=== PATIENT | female | born 1975 | race African-American/Black ===

== ENCOUNTER 2020-11-23 23:57 | Emergency (ER) | payer OTHER ==
[~2020-11-23] VITALS: Ht 162.6 cm; Wt 80.7 kg
[2020-11-24] MEDS ORDERED: IBUPROFEN 600 MG TAB PO STA (01:55)
[2020-11-24] MEDS ORDERED: IBUPROFEN 400 MG TAB PO STA (01:58)
[2020-11-24] MEDS ORDERED: NAPROSYN500 MG PO (01:59)
[2020-11-24] MEDS ORDERED: CYCLOBENZAPRINE10 MG PO (02:01)
[2020-11-24] MEDS ORDERED: IBUPROFEN 400 MG TAB ONE (02:04)
[2020-11-24] MEDS ORDERED: TYLENOL # 31 EA PO (02:14)
== END 2020-11-24 02:34 | disposition home or self-care (01) ==
LOC: FSED 11-24 00:18
DX: S13.4XXA Sprain of ligaments of cervical spine, initial encounter (principal); V43.52XA Car driver injured in collision with other type car in traffic accident, initial encounter; Y92.488 Other paved roadways as the place of occurrence of the external cause
CPT/HCPCS: 99283